=== PATIENT | female | born 1955 | race Two or more races ===

== ENCOUNTER 2019-09-20 09:00 | Outpatient (CLI) | payer OTHER ==
[~2019-09-20] VITALS: Ht 162.6 cm; Wt 69.4 kg
[~2019-09-20 09:00] MED LIST: [UNRECOGNIZED DRUG - REMARK] PO
[2019-09-20] MEDS ORDERED: CRESTOR10 M2 ORAL (09:35)
[2019-09-20 09:38] VITALS: BP 118/69
--- NOTE | 2019-09-20 09:59 | Short Stay Surgery H&P ---
History of Present Illness History of Present Illness Chief Complaint Left lower back pain with radiculopathy. HPI Jaida Mclaughlin is a 64 year old female who was admitted on for Lumbrosacral Spondylosis with radiculopathy. Patient History Allergies: Uncoded Allergies: PENICILLIN (Allergy, Unknown, skin rashes, 09/20/19) PAST MEDICAL HISTORY: (1) Lumbosacral spondylosis with radiculopathy Patient History Narrative The patient has a date of loss of 05/13/2018 and suffered lower back pain and radiation down the left leg. She has failed conservative treatment and is here for her first therapeutic facet injections. Medication History Scheduled Rosuvastatin Calcium* (Crestor*), Unknown Dose ORAL DAILY, (Reported) Miscellaneous Medications [thyroid pill], PO, (Reported) Review of Systems Cardiovascular: Denies: no symptoms, see HPI, hypertension, CAD - stable, angina, HI, CABG, dysrhythmia, CHF, valvular disease, rheumatic heart disease, peripheral vascular disease, source of infx - skin, source of infx-indw cath, source of infx-prosthesis, other Respiratory: Denies: no symptoms, see HPI, asthma, chronic bronchitis, pneumonia, COPD, URI, tuberculosis, sleep apnea, CPAP, home 02, other Skeletal: Reports: spinal disc disease, trauma Gastrointestinal: Denies: no symptoms, see HPI, obesity, peptic ulcer disease, gastro esophageal reflux disease, hiatal hernia, jaundice, hepatitis A,B,C, other Genitourinary: Denies: no symptoms, see HPI, renal insufficiency, endstage renal disease, dialysis, UTI, urinary retention, BPH, other Neurologic: Denies: no symptoms, see HPI, seizure, stroke/TIA, neuropathy, neuro muscular disease, other Endocrine: Denies: no symptoms, see HPI, diabetes - type 1, diabetes - type 2, thyroid, post menopausal, other Hematologic: Denies: no symptoms, see HPI, anemia, coagulopathy, prior transfusion, other Physical Exam Vital Signs Last Vital Signs Date Time Temp Pulse Resp B/P (MAP) Pulse Ox O2 Delivery O2 Flow Rate FiO2 09/20/19 09:39 Room Air 09/20/19 09:38 97.5 76 18 118/69 98 Skin: normal HENT: normal Heart: normal Lungs: normal Abdomen: normal Extremities: normal Genitourinary: normal Plan Plan of Care Left L4-L5 and L5-S1 intra-articular facet injections with platelet rich plasma. Preop Interventions see HPI Attestation Are the patient's medical conditions optimized for surgery? Attestation Response: yes Christy Parks MD Sep 20, 2019 09:59
[2019-09-20] MEDS ORDERED: Isovue-M 300 15ml INJ PRN (10:00)
--- NOTE | 2019-09-20 10:00 | Pre-Procedure Note/Attestation ---
Pre-Procedure Note/Attestation Complete Prior to Procedure Planned Procedure: left Procedure Narrative: Left L4-L5 and L5-S1 intra-articular facet injections with platelet rich plasma. Indications for Procedure Pre-Operative Diagnosis: lumbosacral spondylosis with radiculopathy. Attestation I attest that I discussed the nature of the procedure; its benefits; risks and complications; and alternatives (and the risks and benefits of such alternatives ), prior to the procedure, with the patient (or the patient's legal sales and marketing representative). I attest that, if there was a reasonable possibility of needing a blood transfusion, the patient (or the patient's legal sales and marketing representative) was given the [place] [employer] standardized written summary, pursuant to the [place]um [place] Blood Safety Act ([place] Health and Safety Code # 1645, as amended). I attest that I re-evaluated the patient just prior to the surgery and that there has been no change in the patient's H&P, except as documented below: Christy Parks MD Sep 20, 2019 09:59
[2019-09-20 10:15] VITALS: BP 128/77
--- NOTE | 2019-09-20 14:26 | Diagnostic Imaging Report ---
INDICATION: Pain, intraoperative TECHNIQUE: Intraoperative imaging Fluoroscopy time: 32.7 seconds Total dose: 0.79601 mGym2 Total number of images: 3 COMPARISON: None FINDINGS: Intraoperative images demonstrate contrast injection in the region of the left L4-5 facet joint IMPRESSION: Intraoperative imaging, as described
--- NOTE | 2019-09-20 14:26 | Diagnostic Imaging Report ---
INDICATION: Pain, intraoperative TECHNIQUE: Intraoperative imaging Fluoroscopy time: 32.7 seconds Total dose: 0.62018 mGym2 Total number of images: 3 COMPARISON: None FINDINGS: Intraoperative images demonstrate contrast injection in the region of the left L4-5 facet joint IMPRESSION: Intraoperative imaging, as described
--- NOTE | 2019-09-20 17:10 | Brief Operative Note ---
Immediate Post Operative Note Operative Note Chief Complaint: Lower back pain with radiation down the left thigh Pre-op Diagnosis: lumbosacral spondylosis with radiculopathy. Procedure: Left L4-L5 and L5-S1 intra-articular facet injections with platelet rich plasma. Post-op Diagnosis: Lumbosacral spondylosis with radiculopathy Post-op Diagnosis: same as pre-op Findings: consistent w/pre-op dx studies Surgeon: Christy Parks MD Faith Doctor: none Additional Surgeons: none Anesthesiologist: none Anesthesia: local Specimen: none Complications: none Condition: stable Fluids: none Estimated Blood Loss: none Drains: none Packing: none Tourniquet time: 0 - min Implant(s) used?: No Christy Parks MD Sep 20, 2019 17:10
--- NOTE | 2019-09-20 17:16 | Discharge Summary ---
Discharge Summary Hospital Course Date of Admission 09/20/2019 Date of Discharge 09/20/2019 Admitting Diagnosis Lumbosacral spondylosis with radiculopathy Reason for Hospitalization: short stay for injection HPI Jaida Mclaughlin is a 64 year old female who was admitted on for Lumbrosacral Spondylosis Consultations none Procedures Left L4-L5 and L5-S1 intra-articular facet injections with platelet rich plasma. Hospital Course short stay Discharge Condition Upon Discharge: improving Discharge Disposition Patient was discharged to home accompanied by daughter. Discharge Diagnoses: (1) Lumbosacral spondylosis with radiculopathy Discharge Instructions Discharge Instructions Assessment This is a 64 year old female with lumbosacral spondylosis, improving slightly after the procedure. She states her leg pain is improving. Follow up with: Dr. Parks For Surgical Patients Dressing Care: may change May shower: Yes Contact your physician for: bleeding, pain, tenderness, redness, swelling, yellowish discharge in the op. site Christy Parks MD Sep 20, 2019 17:16
--- NOTE | 2019-09-20 17:19 | Operative Note - PDOC ---
Operative Note Operative Note Date of Operation/Procedure: Sep 20, 2019 Chief Complaint: Lower back pain with radiation down the left thigh Pre-op Diagnosis: lumbosacral spondylosis with radiculopathy. Procedure: Left L4-L5 and L5-S1 intra-articular facet injections with platelet rich plasma. Post-op Diagnosis: Lumbosacral spondylosis with radiculopathy Post-op Diagnosis: same as pre-op Operative Findings: consistent w/pre-op dx studies Surgeon: Christy Parks MD Strap Sewer: none Additional Surgeons: none Anesthesiologist: none Anesthesia: local Specimen: none Complications: none Condition: stable Fluids: none Estimated Blood Loss: none Drains: none Packing: none Tourniquet time: 0 - min Implant(s) used?: No Indications for Procedure The patient has a date of loss of 05/13/18 and has failed conservative treatment. She is here for a therapeutic left-sided L4-L5 and L5-S1 intra- articular facet injections with platelet rich plasma.. Description of Procedure The patient was seen and identified in the preoperative area. Risks, benefits, complications, and alternatives were discussed with the patient. The patient agreed to proceed with the procedure and signed the consent. The preop nurse removed 10 mL of blood from the patient's AC under sterile conditions and placed it in the PRP tube. The tube was then placed in the centrifuge and spun for 10 minutes at 4000 rpm. The patient was then placed in the prone position, and lumbosacral area was prepped with Betadine x 3 and draped in the usual sterile fashion. Critical pause was taken. Using right oblique fluoroscopy, the left L4-L5 and L5-S1 facet joints were identified, and skin and deeper tissues were anesthetized with 1% lidocaine. We used 25-gauge 3.5-inch spinal needles for the procedure. The first needle was guided intra- articularly by fluoroscopy to the left L4-L5 joint. The second needle was guided intra-articularly by fluoroscopy to the left L5-S1 joint. Tip position was confirmed on lateral fluoroscopy. After negative aspiration of CSF and blood with no paresthesias, 0.5mL of Isoview M200 was injected illustrating excellent arthrogram. Again after negative aspiration of CSF and blood with no paresthesias, 1 mL of PRP was was injected into each joint. The needles were removed, skin was cleansed, and bandages were applied. The patient tolerated the procedure well without complications, and was discharged from recovery room after meeting discharge. Follow up: The patient will follow up in two weeks. She was told to avoid NSAID, jacuzzi baths and icing the area. Christy Parks MD Sep 20, 2019 17:19
== END 2019-09-20 11:00 | disposition home or self-care (01) ==
LOC: RAD 09:00
DX: M47.27 Other spondylosis with radiculopathy, lumbosacral region (principal)
CPT/HCPCS: 64483; 64484; 76000; Q9967